=== PATIENT | male | born 2005 | race Caucasian/White ===

== ENCOUNTER 2023-01-06 16:36 | Emergency (ER) | payer MEDICAID ==
[~2023-01-06] VITALS: Ht 160 cm; Wt 60.3 kg
[2023-01-06 16:52] VITALS: BP 138/81; PULSE 74; RESP 17; TEMP 98.2; O2SAT 99
[2023-01-06] MEDS ORDERED: IBUP-2213 PO (20:30)
[2023-01-06] MEDS ORDERED: ACET-10509 PO (20:46)
== END 2023-01-06 21:02 | disposition home or self-care (01) ==
LOC: MED 16:36
DX: R07.89 Other chest pain (principal); J98.8 Other specified respiratory disorders; Z79.899 Other long term (current) drug therapy
CPT/HCPCS: 99284